=== PATIENT | male | born 2005 | race Caucasian/White ===

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

== ENCOUNTER 2025-03-30 09:48 | Emergency (ER) | payer OTHER ==
[2025-03-30] MEDS ORDERED: Sodium Chloride 0.9% 10 ML Syringe FLUSH PRN (10:08)
[2025-03-30] MEDS: methylPREDNISolone Sodium Succinate 125 MG/2 ML SDV IVPUSH ONE (10:18)
[2025-03-30] MEDS: Sodium Chloride 0.9% 1,000 ML IV ONE ×2 (10:18→13:14)
[2025-03-30] MEDS: Ketorolac 30 MG/ML SDV IVPUSH ONE (10:18)
[2025-03-30] MEDS: cefTRIAXone 2 GM Vial IVPUSH ONE (10:18)
[2025-03-30 10:28] LABS: BASOPHILS ABSOLUTE AUTO 0.2 K/mm3 (0.0-0.3); BASOPHILS PERCENT AUTO 0.7 % (0.0-1.0); EOSINOPHILS ABSOLUTE AUTO 0.2 K/mm3 (0.0-0.7); EOSINOPHILS PERCENT AUTO 0.8 % (0.0-5.0); HEMATOCRIT 45.2 % (42.0-52.0); HEMOGLOBIN 15.9 gm/dl (14.0-18.0); IMMATURE GRAN ABSOLUTE AUTO 0.04 K/mm3 (0.00-0.05); IMMATURE GRAN PERCENT AUTO 0.2 % (0.0-0.4); LYMPHOCYTES ABSOLUTE AUTO 6.6 K/mm3 (2.0-8.8); MEAN CORPUSCULAR HEMOGLOBIN 28.5 pg (28.0-32.0); MEAN CORPUSCULAR HGB CONC 35.2 g/dl (32.0-36.0); MEAN PLATELET VOLUME 10.8 fl (9.4-12.4); MONOCYTES ABSOLUTE AUTO 2.3 K/mm3 (0.1-1.4); MONOCYTES PERCENT AUTO 11.4 % (2.0-10.0); NEUTROPHILS ABSOLUTE AUTO 10.8 K/mm3 (1.5-8.5); NEUTROPHILS PERCENT AUTO 53.9 % (35.0-45.0); PLATELET COUNT,PLT 120 K/mm3 (150-400); RED BLOOD CELL COUNT 5.58 M/mm3 (4.52-5.90); WHITE BLOOD CELL COUNT,WBC 20.01 K/mm3 (4.5-13.5)
[2025-03-30] MEDS: Sodium Chloride 0.9% 10 ML Syringe FLUSH PRN (10:42)
[2025-03-30] MEDS: Iopamidol 612 MG/ML 100 ML Bottle IVPUSH ONE (10:43)
[2025-03-30 10:51] LABS: INR 1.21; PROTHROMBIN TIME 12.7 SECONDS (9.7-12.0)
[2025-03-30 10:58] LABS: A/G RATIO 0.9 (1-2); ALBUMIN 4.1 g/dl (3.4-5.0); ANION GAP 20.3 (5-15); BILIRUBIN TOTAL 1.2 mg/dL (0.2-1.0); BUN/CREATININE RATIO 11.7 (14-18); C-REACTIVE PROTEIN 16.61 mg/dL (<0.30); CALCIUM 9.3 mg/dL (8.5-10.1); CREATININE 1.2 mg/dL (0.7-1.3); EST CRCL DRUG DOSING (CG) 108.68 mL/min; POTASSIUM,K 4.3 mEq/L (3.5-5.1); PROTEIN TOTAL,TP 8.7 g/dl (6.4-8.2)
[2025-03-30 10:59] LABS: LACTIC ACID 1.9 mmol/L (0.4-2.0)
[2025-03-30 11:02] LABS: SLIDE REVIEW ABNORMAL SMEAR
[2025-03-30] MEDS: Sodium Chloride 0.9% 1,000 ML IV SCH (11:32)
[2025-03-30] MEDS: Clindamycin Phosphate in D5W 900 MG in Premix Bag 1 BAG IV ONE (13:52)
== END 2025-03-30 14:55 | disposition home or self-care (01) ==
LOC: JD.ED 09:48
DX: J03.90 Acute tonsillitis, unspecified (principal); L02.11 Cutaneous abscess of neck
CPT/HCPCS: 36415; 70491; 80053; 83605; 85025; 85610; 86140; 86308; 87651; 96361; 96365; 96375; 99285; J0696; J0736; J1885; J2919; J7030; Q9967